=== PATIENT | male | born 1995 | race Caucasian/White ===

== ENCOUNTER 2018-04-20 15:39 | Emergency (ER) | payer OTHER ==
[2018-04-20 16:26] VITALS: BP 126/52
--- NOTE | 2018-04-20 16:58 | ED ---
Upper Extremity Pain - HPI Summary HPI Summary: 22 yr old male with the complaint of right 5th finger pain. Onset of pain yesterday when he hit his finger on another football player. He is right handed. He has associated bruising and pain. - History of Current Complaint Chief Complaint: UCUpperExtremity Stated Complaint: LEFT HAND PINKY INJURY Time Seen by Provider: 04/20/18 16:32 - Allergies/Home Medications Allergies/Adverse Reactions: Allergies Allergy/AdvReac Type Severity Reaction Status Date / Time No Known Allergies Allergy Verified 04/20/18 16:26 Home Medications: Home Medications NK [No Home Medications Reported] 04/20/18 [History Confirmed 04/20/18] PMH/Surg Hx/FS Hx/Imm Hx - Surgical History Surgery Procedure, Year, and Place: jaw fx with metal plate summer 2016 Infectious Disease History: No Infectious Disease History: Denies: Traveled Outside the [place] in Last 30 Days - Social History Occupation: Student Alcohol Use: Occasionally Substance Use Type: Reports: None Smoking Status (MU): Never Smoked Tobacco Review of Systems Constitutional: Negative Positive: Other - right 5th little finger injury All Other Systems Reviewed And Are Negative: Yes Physical Exam Triage Information Reviewed: Yes Vital Signs On Initial Exam: Initial Vitals Temp Pulse Resp BP Pulse Ox 98.6 F 66 18 126/52 100 04/20/18 16:17 04/20/18 16:17 04/20/18 16:17 04/20/18 16:17 04/20/18 16:17 Vital Signs Reviewed: Yes Appearance: Positive: Well-Appearing, No Pain Distress Skin: Positive: Warm, Skin Color Reflects Adequate Perfusion Head/Face: Positive: Normal Head/Face Inspection Neck: Positive: Nontender Respiratory/Lung Sounds: Positive: Clear to Auscultation, Breath Sounds Present Cardiovascular: Positive: RRR. Negative: Murmur Abdomen Description: Negative: Distended Musculoskeletal: Positive: Strength/ROM Intact, Other - right index finger with bruising, no gross deformity or dislocation, he is tender over the intermediate phalynx and distal one. Intact profundus, superficial flexor tendon, and extensor tendon. Neurological: Positive: Sensory/Motor Intact, Alert, Oriented to Person Place, Time, CN Intact II-III Psychiatric: Positive: Normal Diagnostics - Vital Signs Vital Signs Temp Pulse Resp BP Pulse Ox 04/20/18 16:17 98.6 F 66 18 126/52 100 - Laboratory Lab Statement: Any lab studies that have been ordered have been reviewed, and results considered in the medical decision making process. - Radiology right 5th finger Xray Interpretation: No Acute Changes Radiology Interpretation Completed By: Radiologist Course/Dx - Course Course Of Treatment: 22 yr old with contusion/sprain to finger. Plan DC home. FU with Dr Cherry referral. - Diagnoses Provider Diagnoses: Finger sprain Discharge - Sign-Out/Discharge Documenting (check all that apply): Patient Departure All imaging exams completed and their final reports reviewed: Yes - Discharge Plan Condition: Good Disposition: HOME Patient Education Materials: Finger Sprain (ED) Referrals: No Primary Care Phys,NOPCP [Primary Care Provider] - [facility] [Outside] - 2 Days Jv Cherry MD [Medical Doctor] - 2 Days - Billing Disposition and Condition Condition: GOOD Disposition: Home
--- NOTE | 2018-04-20 17:31 | RAD ---
INDICATION: Pain at the right small finger proximal interphalangeal joint since an injury the previous day COMPARISON: None. TECHNIQUE: 3 views of the right small finger were obtained. FINDINGS: The bones are normal alignment. Joint spaces appear maintained. No fracture is seen. IMPRESSION: NO EVIDENCE FOR FRACTURE, IF THE PATIENT'S SYMPTOMS PERSIST RECOMMEND FOLLOW-UP IMAGING.
== END 2018-04-20 17:58 | disposition home or self-care (01) ==
LOC: UCCORT 15:39
DX: S63.616A Unspecified sprain of right little finger, initial encounter (principal); W51.XXXA Accidental striking against or bumped into by another person, initial encounter; Y93.61 Activity, american tackle football; Y92.9 Unspecified place or not applicable
CPT/HCPCS: 73140; 99201; G0463